=== PATIENT | male | born 2000 | race Caucasian/White ===

== ENCOUNTER 2022-05-09 18:33 | Emergency (ER) | payer BC ==
[~2022-05-09] VITALS: Ht 172.7 cm; Wt 86.2 kg
[2022-05-09 18:43] VITALS: BP_SYST 123
--- NOTE | 2022-05-09 19:15 | NUR ---
DR. ZHANG AT BEDSIDE ASSESSING PATIENT AND SPEAKING TO PATIENT AND FATHER AT THIS TIME.
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
--- NOTE | 2022-05-09 19:22 | NUR ---
Placed in room 03 . Placed on monitoring engineer, blood pressure machine and pulse oximeter. To gown for exam. Side rails up. Report given to JADE BARRAZA
[2022-05-09] MEDS ORDERED: levETIRAcetam 500 MG TABLET PO ONE (19:30)
--- NOTE | 2022-05-09 19:35 | NUR ---
LAB AT BEDSIDE.
[2022-05-09 19:56] LABS: LYMPHOCYTES # (AUTO) 1.3 K/uL (1.0-5.5); MONOCYTES # (AUTO) 0.5 K/uL (0.0-1.0); PLATELET COUNT (AUTO) 218 K/uL (130-430)
[2022-05-09 20:01] LABS: BASOPHILS % (AUTO) 0.3 % (0.0-2.0); EOSINOPHILS # (AUTO) 0.1 K/uL (0.0-0.4); EOSINOPHILS % (AUTO) 0.7 % (0.0-4.0); HEMOGLOBIN 17.3 g/dL (14.0-18.0); LYMPHOCYTES % (AUTO) 14.3 % (20.5-51.5); MEAN CORPUSCULAR HEMOGLOBIN 32 pg (27-31); MEAN CORPUSCULAR HGB CONC 37 % (32-36); MEAN CORPUSCULAR VOLUME 86 fL (79.0-98.0); MONOCYTES % (AUTO) 5.6 % (1.7-9.3); NEUTROPHILS # (AUTO) 7.2 K/uL (1.8-7.7); NEUTROPHILS % (AUTO) 79.1 % (40.0-70.0); RED CELL DISTRIBUTION WIDTH 14.5 % (9.0-15.0); WHITE BLOOD COUNT (AUTO) 9.1 K/uL (4.8-10.8)
--- NOTE | 2022-05-09 20:03 | NUR ---
# 20 gauge angiocath placed to . Use of asceptic technique. Opsite placed over site. Blood return noted. Blood for lab drawn from site. Flushed with 10 cc of normal saline. No evidence of infiltration noted. Patient tolerated well.
--- NOTE | 2022-05-09 20:04 | NUR ---
PATIENT ATTEMPTING TO SIT UP FOR URINE WITH HELP OF EMT.
[2022-05-09 20:06] LABS: CALCIUM 8.9 mg/dL (8.4-11.0); CREATININE 1.04 mg/dL (0.55-1.30); POTASSIUM 3.7 mmol/L (3.5-5.1)
[2022-05-09 20:11] LABS: ALBUMIN 4.4 g/dL (3.4-4.8); TOTAL BILIRUBIN 0.3 mg/dL (0.0-1.0)
--- NOTE | 2022-05-09 20:18 | NUR ---
PATIENT BACK FROM CT SCAN.
--- NOTE | 2022-05-09 20:52 | NUR ---
Pt requesting pain medications at this time and reports head pain. MD made aware.
--- NOTE | 2022-05-09 20:52 | NUR ---
Pt resting in bed awake. Pt A&O X4 and following simple commands. VSS. Safety precautions in place and connected to monitor.
[2022-05-09] MEDS ORDERED: HYDROcodone/ACETAMIN 5-325 MG TAB (NORCO/ VICODIN) PO ONE (21:00)
[2022-05-09 21:10] LABS: BILIRUBIN,URINE NEGATIVE (NEGATIVE); CLARITY/URINE CLEAR (CLEAR); COLOR,URINE YELLOW (YELLOW); GLUCOSE,URINE NEGATIVE (NEGATIVE); KETONES,URINE NEGATIVE (NEGATIVE); LEUKOCYTE ESTERASE ,URINE NEGATIVE (NEGATIVE); NITRITE, URINE NEGATIVE (NEGATIVE); PROTEIN URINE 1+ (NEGATIVE); UROBILINOGEN,URINE 0.2 (0.2-1.0)
[2022-05-09 21:20] LABS: BLOOD, URINE TRACE (NEGATIVE)
[2022-05-09 21:21] LABS: BACTERIA,URINE FEW /HPF (None Seen); MUCUS,URINE None Seen /LPF (None Seen); RBC,URINE NONE SEEN /HPF (0-3); WBC,URINE 0-3 /HPF (0-3)
--- NOTE | 2022-05-09 22:04 | NUR ---
COVID SAMPLE COLLECTED AND SENT TO LAB.
--- NOTE | 2022-05-09 23:45 | NUR ---
Pt requesting Dilaudid at this time. made aware.
--- NOTE | 2022-05-10 00:01 | NUR ---
Pt requesting Dilaudid again for pain. made aware.
--- NOTE | 2022-05-10 00:10 | NUR ---
MD at bedside with saidatent and parents for update on plan of care.
[2022-05-10] MEDS ORDERED: LEVE1000 PO (00:40)
[2022-05-10] MEDS ORDERED: HYDROcodone/ACETAMIN 5-325 MG TAB (NORCO/ VICODIN) PO ONE (00:45)
[2022-05-10 01:13] VITALS: BP_SYST 118
--- NOTE | 2022-05-10 01:13 | NUR ---
Patient given written and verbal discharge instructions and verbalizes understanding. ER DR. SAL discussed with patient the results and treatment provided. Patient in stable condition. ID arm band removed. IV catheter removed intact and dressing applied, no active bleeding. Rx of KEPPRA given. Patient educated on pain management and to follow up with PMD. Pain Scale 2. Opportunity for questions provided and answered. Medication side effect fact sheet provided.
== END 2022-05-10 01:13 | disposition home or self-care (01) ==
LOC: SED 18:33
DX: G40.409 Other generalized epilepsy and epileptic syndromes, not intractable, without status epilepticus (principal); R51.9 Headache, unspecified; Z79.899 Other long term (current) drug therapy; Z20.822 Contact with and (suspected) exposure to COVID-19
CPT/HCPCS: 36415; 70250-TC; 70360-TC; 70450-TC; 71045; 76376; 80053; 81000; 85025; 99285